=== PATIENT | female | born 1940 | race African-American/Black ===

== ENCOUNTER → 2017-01-22 | Outpatient (CLI) | payer BC ==
--- NOTE | 2017-01-25 12:10 | SLEEP ---
DATE OF STUDY: 01/22/2017 ATTENDING PHYSICIAN: Dr. Colby Kinney. The patient is 76 years old who weighs 285 pounds with a BMI of 47. The patient had sleep study 5 years ago and was positive for KELSEY and has been on 10 cm of CPAP. The patient now has gained 40 pounds since then and has increased daytime sleepiness. Another sleep study with CPAP titration was requested. During the night study, the patient spent 405 minutes in bed and slept for 365 minutes with a sleep efficiency of 90%. Sleep latency was 5 minutes with a REM latency of 186 minutes. Overall, sleep architecture showed increased stage I and stage II sleep, normal slow wave and reduced REM sleep. The patient was started on CPAP at 5 cm water and was gradually increased to eliminate apneas as well as hypopneas. At a final pressure of 13 cm water, the patient slept for 88 minutes. The patient's AHI was 0 per hour. The patient had supine sleep throughout and also REM sleep was seen at the final pressure. The patient's oxygen saturation remained above 92%. EKG monitoring revealed normal sinus rhythm. Average heart rate was 65 beats per minute, no sustained arrhythmias were observed. PLMS were not seen. IMPRESSION: 1. Sleep apnea diagnosed previously. The patient has moderate obstructive sleep apnea with worsening during rapid eye movement sleep in 2008. 2. No clinically significant periodic limb movements of sleep. RECOMMENDATIONS: 1. CPAP at 13 cm water should be used on a nightly basis. It completely eliminated the patient's sleep apnea 2. Follow up in 4-6 weeks to assess compliance with CPAP and to document clinical improvement. 3. Weight loss is strongly advised. 4. Avoid [employer] depressants. 5. Caution regarding driving until symptoms of sleep apnea resolve with the use of CPAP. DAWSON BUSH MD DR: SEAN/jose francisco JOB#: [id number] / [id number] COLBY Jordan MD MTDTony
== END | disposition home or self-care (01) ==
LOC: RT 18:31
PROVIDERS: ATTEND Internal Medicine
DX: G47.33 Obstructive sleep apnea (adult) (pediatric) (principal)
CPT/HCPCS: 95810

== ENCOUNTER → 2017-02-19 | Outpatient (CLI) | payer BC ==
[~2017-02-19] MED LIST: INSU100I13 SQ; IOHEXOL 240 MG/ML 50ML VIAL. PO ONE; IOHEXOL 300 MG/ML 100ML VIAL. IV ONE; LISI2.5T PO; METF500T4 PO
--- NOTE | 2017-02-19 11:51 | KCIC ---
CT abdomen and pelvis with contrast Indication: Rectal bleeding. Left-sided abdominal pain. Hysterectomy. Cholecystectomy.. . Technique: Intravenous contrast is given. Oral contrast given. Comparison:None available Exposure: One or more of the following individualized dose reduction techniques were utilized for this examination: 1. Automated exposure control 2. Adjustment of the mA and/or kV according to patient size 3. Use of iterative reconstruction technique. FINDINGS: Lower thorax: Multiple small noncalcified nodules are seen in the lung bases. This is largest in the left lingula where there are a cluster of nodules, largest measures 6 mm. Pneumoperitoneum:No gross pneumoperitoneum. Liver: Unremarkable Spleen: Unremarkable Pancreas: Unremarkable Adrenals:No evidence of mass. Kidneys: Small lesion arising from the lateral mid left kidney, measures 10 mm diameter. This is slightly hyperdense to fluid, could represent a hemorrhagic cyst. Gallbladder: Surgically absent. Aorta: Atheromatous calcification. No evidence of aneurysm. Lymph nodes: Several small right lower quadrant mesenteric lymph nodes are seen, measuring up to 11 mm. GI tract: No bowel obstruction. No paracolonic inflammatory type change. Appendix: Not visualized. Ascites: No gross ascites. Urinary bladder: Not opacified, but no apparent abnormality. No evidence of pelvic mass. Bones: Degenerative changes of the spine. Subchondral cyst or Schmorl's node at L2. Degenerative changes at the sacroiliac joints. IMPRESSION: 1. Small noncalcified pulmonary nodules in both lung bases. These could represent metastatic tumor deposits. Recommend CT chest for further evaluation. 2. Small lesion of the left kidney, may represent a hemorrhagic cyst but other etiologies not excludable. Recommend correlation with ultrasound. Electronically signed by: Dmitry Paris MD (02/19/2017 11:48 AM) [id number]
== END | disposition home or self-care (01) ==
LOC: KCIC CT 09:33
PROVIDERS: ATTEND Internal Medicine
DX: K62.5 Hemorrhage of anus and rectum (principal); N28.9 Disorder of kidney and ureter, unspecified
CPT/HCPCS: 74177; 82565; Q9966; Q9967

== ENCOUNTER → 2017-03-14 | Outpatient (CLI) | payer BC ==
[~2017-03-14] MED LIST changes: -IOHEXOL 240 MG/ML 50ML VIAL. PO ONE; -IOHEXOL 300 MG/ML 100ML VIAL. IV ONE
--- NOTE | 2017-03-14 10:54 | KCIC ---
Renal ultrasound History: Abnormal CT, left renal lesion. Comparison: CT abdomen pelvis February 19, 2017. Technique: Transabdominal imaging was performed of the kidneys and bladder. Findings: Examination is technically difficult secondary to patient's body habitus. There is suboptimal visualization of the kidneys. Right kidney measures 10.8 cm in length. No convincing obstruction or convincing right renal mass is identified. Left kidney is estimated measuring 10.9 cm in length. There is suboptimal visualization of the left kidney. Previously identified renal lesion is not identified or evaluated. Aorta and IVC are not well seen. Urinary bladder is not well seen. Impression: 1. Significantly limited examination. 2. Left renal lesion is not identified and consequently not evaluated. 3. Renal mass protocol CT without and with intravenous contrast could be performed for further evaluation. Electronically signed by: Dmitry Rajput MD (03/14/2017 10:50 AM) [id number]
== END | disposition home or self-care (01) ==
LOC: KCIC US 08:28
PROVIDERS: ATTEND Internal Medicine
DX: N28.89 Other specified disorders of kidney and ureter (principal)
CPT/HCPCS: 76770

== ENCOUNTER → 2021-01-18 | Outpatient (CLI) | payer BC, MEDICARE ==
[~2021-01-18] MED LIST changes: -LISI2.5T PO; +LISI2.5T12 PO; +METF500T16 PO; -METF500T4 PO
--- NOTE | 2021-01-18 11:26 | KCIC ---
CT ORBITS/SELLA WITHOUT CONTRAST Clinical indications: Vertigo. Technique: Helical CT scanning of both temporal bones was performed. 1 mm reconstructed axial and cor onal small [id number] CT images of each temporal bone were generated and reviewed on a computer mo nitor. One or more of the following dose reduction techniques were utilized: Automated exposure contr ol (AEC), Adjustment of mA and/or kV according to patient size, Use of iterative reconstruction techn ique such as ASiR, CT scan done according to ALARA and image gently/image wisely Findings: Right temporal bone:The mastoid sinus and aditus ad antrum and epitympanic recess are clear. The midd le ear ossicles are identified and no erosion is seen. The scutum appears normal. No abnormal thicken ing of the tympanic membrane is seen. The middle ear cavity is clear. The vestibulocochlear complex a nd semicircular canals are morphologically normal in appearance. The internal auditory canal is unrem arkable. No osteolytic process is seen. The facial nerve canal is unremarkable. The jugular foramen i s unremarkable. The external ear canal is open. Left temporal bone: The mastoid sinus and aditus ad antrum and epitympanic recess are clear. The midd le ear ossicles are identified and no erosion is seen. The scutum appears normal. No abnormal thicken ing of the tympanic membrane is seen. The middle ear cavity is clear. The vestibulocochlear complex a nd semicircular canals are morphologically normal in appearance. The internal auditory canal is unrem arkable. No osteolytic process is seen. The facial nerve canal is unremarkable. The jugular foramen i s unremarkable. The external ear canal is open. Impression: Normal study. Electronically signed by: Tomi Casanova MD (01/18/2021 11:24 AM) [id number]
--- NOTE | 2021-01-18 14:27 | KCIC ---
EXAM: US ABDOMEN LIMITED. HISTORY: Umbilical pain. Assess for hernia. COMPARISON: None. FINDINGS: Sonographic evaluation of the periumbilical region of pain was performed. No hernia is iden tified. There is no fluid collection or clear inflammation. IMPRESSION: 1. No hernia or other cause of pain is identified at the umbilicus. Electronically signed by: Mane Ferrer MD (01/18/2021 2:25 PM) [id number]
== END ==
LOC: KCIC CT 10:04
PROVIDERS: ATTEND Family Medicine
DX: J30.9 Allergic rhinitis, unspecified (principal); R10.9 Unspecified abdominal pain
CPT/HCPCS: 70480; 76705